=== PATIENT | female | born 1980 | race Caucasian/White ===

== ENCOUNTER 2018-10-18 07:21 | Emergency (ER) | payer MEDICAID ==
[~2018-10-18] VITALS: Ht 162.6 cm; Wt 78.2 kg
[~2018-10-18 07:21] MED LIST: ALBU8HFA PO; GUAI10SY2 PO; MACROBID PO; PREN1TAB48 PO
[2018-10-18] MEDS ORDERED: normal saline 1000ML IV soln IVB ONE (07:40)
[2018-10-18] MEDS ORDERED: morphine 4 MG/ML inj SYRINge IV PRN (07:40)
[2018-10-18] MEDS ORDERED: ondansetron/PF 4mg/2ml inj IV ONE (07:40)
[2018-10-18 08:23] LABS: BASOPHILS % (AUTO) 0.5 % (0-1); EOSINOPHILS # (AUTO) 0.3 X10'3 (0-0.9); EOSINOPHILS % (AUTO) 4.7 % (0-6); HEMATOCRIT 34.6 % (35.0-45.0); HEMOGLOBIN 11.7 g/dl (12.0-16.0); LYMPHOCYTES % (AUTO) 32.2 % (21-51); MEAN CORPUSCULAR HEMOGLOBIN 30.3 PG (27.0-31.0); MEAN CORPUSCULAR HGB CONC 33.8 % (33.0-36.5); MEAN CORPUSCULAR VOLUME 89.6 FL (78-98); MEAN PLATELET VOLUME 8.1 FL (7.4-10.4); MONOCYTES # (AUTO) 0.6 X10'3 (0-0.9); NEUTROPHILS # (AUTO) 3.3 X10'3 (1.8-7.7); NEUTROPHILS % (AUTO) 53.6 % (42-75); PLATELET COUNT 326 X10'3 (140-440); RED BLOOD COUNT 3.87 X10'6 (4.20-5.60); RED CELL DISTRIBUTION WIDTH 13.9 % (11.5-14.5); WHITE BLOOD COUNT 6.2 X10'3 (4.5-11.0)
[2018-10-18 08:35] LABS: ALANINE AMINOTRANSFERASE 41 U/L (12-78); ALBUMIN/GLOBULIN RATIO 0.8 (1.1-1.5); ALKALINE PHOSPHATASE 66 IU/L (46-116); ANION GAP 11 (8-16); ASPARTATE AMINO TRANSFERASE 34 U/L (10-37); BILIRUBIN,TOTAL 0.2 MG/DL (0.1-1.0); BLOOD UREA NITROGEN 9 MG/DL (7-18); BUN/CREATININE RATIO 10.6 (6.6-38.0); CALCIUM 8.1 MG/DL (8.5-10.1); CHLORIDE 108 MMOL/L (99-107); CREATININE 0.85 MG/DL (0.40-0.90); GLUCOSE 118 MG/DL (70-104); POTASSIUM 3.6 MMOL/L (3.5-5.1); SODIUM 142 MMOL/L (135-145); TOTAL CARBON DIOXIDE 22.8 MMOL/L (24-32); TOTAL PROTEIN 6.7 G/DL (6.4-8.2); eGFR 75 ML/MIN
[2018-10-18 08:38] LABS: INR 0.9 INR; PROTHROMBIN TIME 9.4 SECONDS (9.0-12.0)
[2018-10-18] MEDS ORDERED: acetaminophen 650mg rectal suppository RC ONE (08:40)
[2018-10-18 08:57] LABS: BETA HCG,QUANTITATIVE 8277 mIU/ml
[2018-10-18 09:37] VITALS: BP 130/82
== END 2018-10-18 11:09 | disposition short-term general hospital (02) ==
LOC: ER 07:21
DX: O03.4 Incomplete spontaneous abortion without complication (principal); O46.91 Antepartum hemorrhage, unspecified, first trimester; O26.891 Other specified pregnancy related conditions, first trimester; G89.29 Other chronic pain; O16.1 Unspecified maternal hypertension, first trimester; O99.321 Drug use complicating pregnancy, first trimester; F12.90 Cannabis use, unspecified, uncomplicated; Z88.0 Allergy status to penicillin; Z79.899 Other long term (current) drug therapy; Z3A.08 8 weeks gestation of pregnancy
CPT/HCPCS: 36415; 76801; 76817; 80053; 84702; 85025; 85610; 86885; 86900; 86901; 96374; 96375; 99285; J2270; J2405; J7030

== ENCOUNTER 2019-03-03 11:59 | Emergency (ER) | payer MEDICAID ==
[~2019-03-03] VITALS: Ht 162.6 cm; Wt 78.2 kg
[2019-03-03] MEDS ORDERED: IBUP-1985 PO (13:31)
[2019-03-03 13:55] VITALS: BP 135/95
== END 2019-03-03 13:57 | disposition home or self-care (01) ==
LOC: ER 11:59
DX: S80.11XA Contusion of right lower leg, initial encounter (principal); I10 Essential (primary) hypertension; G89.29 Other chronic pain; F12.90 Cannabis use, unspecified, uncomplicated; Z88.0 Allergy status to penicillin; Z79.899 Other long term (current) drug therapy; V09.9XXA Pedestrian injured in unspecified transport accident, initial encounter; Y93.89 Activity, other specified; Y92.89 Other specified places as the place of occurrence of the external cause; Y99.9 Unspecified external cause status
CPT/HCPCS: 73590; 73610; 99283

== ENCOUNTER 2020-08-15 14:45 | Emergency (ER) | payer MEDICAID ==
[~2020-08-15] VITALS: Ht 162.6 cm; Wt 70.5 kg
[~2020-08-15 14:45] MED LIST changes: +IBUP-1985 PO
== END 2020-08-15 16:08 | disposition home or self-care (01) ==
LOC: ER 14:46
DX: R53.81 Other malaise (principal); R11.0 Nausea; R19.7 Diarrhea, unspecified; R50.9 Fever, unspecified; Z20.828 Contact with and (suspected) exposure to other viral communicable diseases; I10 Essential (primary) hypertension; G89.29 Other chronic pain; F17.200 Nicotine dependence, unspecified, uncomplicated; F12.90 Cannabis use, unspecified, uncomplicated; Z87.440 Personal history of urinary (tract) infections; Z88.0 Allergy status to penicillin; Z79.899 Other long term (current) drug therapy
CPT/HCPCS: 36415; 87635; 99283; C9803

== ENCOUNTER 2020-08-17 13:28 | Emergency (ER) | payer MEDICAID ==
[~2020-08-17] VITALS: Ht 162.6 cm; Wt 72.7 kg
[2020-08-17 13:43] VITALS: BP 119/97
== END 2020-08-17 14:31 | disposition home or self-care (01) ==
LOC: ER 13:30
DX: R05 Cough (principal); R50.9 Fever, unspecified; R06.02 Shortness of breath; R19.7 Diarrhea, unspecified; I10 Essential (primary) hypertension; Z87.448 Personal history of other diseases of urinary system; G89.29 Other chronic pain; F17.200 Nicotine dependence, unspecified, uncomplicated; Z88.0 Allergy status to penicillin; Z79.899 Other long term (current) drug therapy
CPT/HCPCS: 99282

== ENCOUNTER 2020-12-21 23:26 | Emergency (ER) | payer MEDICAID ==
[~2020-12-21] VITALS: Ht 162.6 cm; Wt 76.4 kg
[2020-12-21 23:29] VITALS: BP 150/81
[2020-12-21] MEDS ORDERED: acetaminophen 325mg tablet PO ONE (23:45)
[2020-12-21] MEDS ORDERED: ketorolac trometh inj. 60 MG/2 ML VIAL IM ONE (23:45)
== END 2020-12-22 00:07 | disposition home or self-care (01) ==
LOC: ER 23:27
DX: M25.571 Pain in right ankle and joints of right foot (principal); I10 Essential (primary) hypertension; G89.29 Other chronic pain; F12.90 Cannabis use, unspecified, uncomplicated; Z87.440 Personal history of urinary (tract) infections; Z88.0 Allergy status to penicillin; Z79.899 Other long term (current) drug therapy
CPT/HCPCS: 29515; 73610; 96372; 99284; J1885

== ENCOUNTER 2021-09-13 10:07 | Emergency (ER) | payer MEDICAID | END 2021-09-13 11:34 | disposition left against medical advice (07) | LOC: ER 10:08 | DX: L23.7 Allergic contact dermatitis due to plants, except food (principal); Z53.21 Procedure and treatment not carried out due to patient leaving prior to being seen by health care provider ==

== ENCOUNTER 2022-01-12 19:05 | Emergency (ER) | payer MEDICAID ==
[~2022-01-12] VITALS: Ht 162.6 cm; Wt 78.8 kg
[2022-01-12] MEDS ORDERED: ondansetron 4mg rapidly disintigrating tab PO ONE (20:00)
[2022-01-12 20:56] LABS: ALANINE AMINOTRANSFERASE 23 U/L (12-78); ALBUMIN 3.1 G/DL (3.4-5.0); ALBUMIN/GLOBULIN RATIO 0.8 (1.1-1.5); ALKALINE PHOSPHATASE 79 IU/L (46-116); ANION GAP 11 (8-16); ASPARTATE AMINO TRANSFERASE 23 U/L (10-37); BILIRUBIN,TOTAL 0.2 MG/DL (0.1-1.0); BLOOD UREA NITROGEN 7 MG/DL (7-18); CALCIUM 8.6 MG/DL (8.5-10.1); CHLORIDE 106 MMOL/L (99-107); GLUCOSE 111 MG/DL (70-104); POTASSIUM 4.5 MMOL/L (3.5-5.1); SODIUM 139 MMOL/L (135-145); TOTAL CARBON DIOXIDE 22.5 MMOL/L (24-32); TOTAL PROTEIN 6.9 G/DL (6.4-8.2)
[2022-01-12 21:02] LABS: BUN/CREATININE RATIO 7.4 (6.6-38.0); CREATININE 0.94 MG/DL (0.40-0.90); eGFR 66 ML/MIN
[2022-01-12 21:06] LABS: BASOPHILS # (AUTO) 0.1 X10'3 (0-0.2); BASOPHILS % (AUTO) 1.3 % (0-1); EOSINOPHILS # (AUTO) 0.1 X10'3 (0-0.9); EOSINOPHILS % (AUTO) 2.1 % (0-6); HEMOGLOBIN 12.7 g/dl (12.0-16.0); LYMPHOCYTES % (AUTO) 32.7 % (21-51); MEAN CORPUSCULAR HEMOGLOBIN 29.1 PG (27.0-31.0); MEAN CORPUSCULAR HGB CONC 32.7 g/dL (33.0-36.5); MEAN CORPUSCULAR VOLUME 89.1 FL (78-98); MEAN PLATELET VOLUME 8.7 FL (7.4-10.4); MONOCYTES # (AUTO) 0.4 X10'3 (0-0.9); NEUTROPHILS # (AUTO) 3.5 X10'3 (1.8-7.7); NEUTROPHILS % (AUTO) 57.9 % (42-75); PLATELET COUNT 332 X10'3 (140-440); RED BLOOD COUNT 4.37 X10'6 (4.20-5.60); RED CELL DISTRIBUTION WIDTH 13.3 % (11.5-14.5); WHITE BLOOD COUNT 6.1 X10'3 (4.5-11.0)
[2022-01-12 21:18] LABS: HCG SERUM QL NEGATIVE
[2022-01-12 22:16] VITALS: BP 140/98
[2022-01-12] MEDS ORDERED: normal saline 1000ml 1,000 ML IV ONE (22:25)
[2022-01-12] MEDS ORDERED: metoclopramide 10mg/10 ml UD oral solution PO PRN (23:05)
[2022-01-12] MEDS ORDERED: metoclopramide 10mg tablet PO PRN (23:17)
[2022-01-13] MEDS ORDERED: ONDA4TAB12 PO (00:06)
== END 2022-01-13 00:17 | disposition home or self-care (01) ==
LOC: ER 22:43
DX: R11.2 Nausea with vomiting, unspecified (principal); R53.1 Weakness; K59.00 Constipation, unspecified; I10 Essential (primary) hypertension; G89.29 Other chronic pain; F12.90 Cannabis use, unspecified, uncomplicated; Z87.440 Personal history of urinary (tract) infections; Z88.0 Allergy status to penicillin; Z79.899 Other long term (current) drug therapy
CPT/HCPCS: 36415; 80053; 84703; 85025; 87502; 87503; 99283